=== PATIENT | male | born 1950 | race Caucasian/White ===

== ENCOUNTER 2024-05-29 04:32 | Emergency (ER) | payer MEDICARE, SELFPAY ==
[2024-05-29] VITALS (18 sets, daily range): BP systolic 144–196; BP diastolic 69–91; PULSE 59–60; RESP 18–20; TEMP 36.2; O2SAT 92–99
--- NOTE | ~2024-05-29 | CT_ITS ---
Non-contrast CT scan of the Abdomen and Pelvis Clinical indication: Abdominal pain, hematuria Technique: 2.5 mm axial scans were obtained through the abdomen and pelvis without intravenous or or al contrast. Dose reduction technique was used on this scan by utilizing automated exposure control a nd iterative reconstruction technique. The dose-length product (DLP) was 784.82 mGy-cm. Findings: Images through the lung bases reveal no abnormalities. There is a 12 x 9 mm ovoid right UVJ stone, with moderate right hydroureteronephrosis to this level. There is extensive right perinephric stranding/fluid. Small nonobstructing left renal stones measurin g up to 2-3 mm in size. No left ureteral stone or left hydronephrosis. The liver, spleen, pancreas, gallbladder, and adrenals appear normal. There are atherosclerotic calci fications of the aorta. There is no evidence of bowel obstruction. Images through the pelvis were performed. There is no evidence of pelvic ascites or lymphadenopathy. Tiny left-sided urinary bladder diverticulum noted. Prostate gland enlarged. Impression: 12 x 9 mm right UVJ stone, with moderate right hydroureteronephrosis and extensive right perinephric stranding/fluid. Small nonobstructing left renal stones, as detailed above. Tiny left-sided urinary bladder diverticulum. Reviewed, dictated and finalized at location . Impression: 12 x 9 mm right UVJ stone, with moderate right hydroureteronephrosis and extens mirian right perinephric stranding/fluid. Small nonobstructing left renal stones, as detailed above. Tiny left-sided urinary bladder diverticulum.
--- NOTE | 2024-05-29 04:39 | ED.ABDPAIN ---
HPI - Abdominal Pain General Chief Complaint: Abdominal Pain <Iker Marin MD - Last Filed: 05/29/24 07:02> Stated Complaint: Abdominal Pain <Iker Marin MD - Last Filed: 05/29/24 07:02> Time Seen by Provider: 05/29/24 04:39 <Iker Marin MD - Last Filed: 05/29/24 07:02> Source: patient <Iker Marin MD - Last Filed: 05/29/24 07:02> Mode of arrival: ambulatory <Iker Marin MD - Last Filed: 05/29/24 07:02> Limitations: no limitations <Iker Marin MD - Last Filed: 05/29/24 07:02> History of Present Illness HPI narrative: 73-year-old male with memory problems, Kidney stones presents to the ED with -- abdominal pain which started sometime at night. No fever or chills. No nausea / vomiting. No diarrhea. <Iker Marin MD - Last Filed: 05/29/24 07:02> MD elicited complaint: abdominal pain <Iker Marin MD - Last Filed: 05/29/24 07:02> Onset (ago): hour(s) ( Around 6 hours) <Iker Marin MD - Last Filed: 05/29/24 07:02> Pain Consistency: constant <Iker Marin MD - Last Filed: 05/29/24 07:02> Location: diffuse <Iker Marin MD - Last Filed: 05/29/24 07:02> Severity: mild <Iker Marin MD - Last Filed: 05/29/24 07:02> Quality: aching <Iker Marin MD - Last Filed: 05/29/24 07:02> Radiation: none <Iker Marin MD - Last Filed: 05/29/24 07:02> Migration to: no migration <Iker Marin MD - Last Filed: 05/29/24 07:02> Exacerbating factors: nothing <Iker Marin MD - Last Filed: 05/29/24 07:02> Relieving factors: nothing <Iker Marin MD - Last Filed: 05/29/24 07:02> Associated symptoms: denies other symptoms <Iker Marin MD - Last Filed: 05/29/24 07:02> Related Data Home Medications: Home Medications Medication Instructions Recorded Confirmed No Home Medications 05/29/24 05/29/24 <Iker Marin MD - Last Filed: 05/29/24 07:02> Allergies/Adverse Reactions: Allergies Allergy/AdvReac Type Severity Reaction Status Date / Time No Known Allergies Allergy Verified 05/29/24 04:40 <Iker Marin MD - Last Filed: 05/29/24 07:02> Review of Systems Review of Systems: All systems reviewed & are unremarkable except as noted in HPI and below <Iker Marin MD - Last Filed: 05/29/24 07:02> Constitutional: Constitutional: Reports as per HPI and Reports no additional constitutional complaints <Iker Marin MD - Last Filed: 05/29/24 07:02> Eyes: Eyes: Reports as per HPI and Reports no additional eye complaints <Iker Marin MD - Last Filed: 05/29/24 07:02> ENT: Reports system reviewed and no additional complaints, except as documented and Reports as per HPI <Iker Marin MD - Last Filed: 05/29/24 07:02> Cardiovascular: Cardiovascular: Reports as per HPI and Reports no additional cardiovascular complaints <Iker Marin MD - Last Filed: 05/29/24 07:02> Respiratory: Respiratory: Reports as per HPI and Reports no additional respiratory complaints <Iker Marin MD - Last Filed: 05/29/24 07:02> Gastrointestinal: Gastrointestinal: Reports abdominal pain and Reports nausea <Iker Marin MD - Last Filed: 05/29/24 07:02> Genitourinary: Comments: difficulty urination. The patient is unable to elaborate his complaints. <Iker Marin MD - Last Filed: 05/29/24 07:02> Musculoskeletal: Musculoskeletal: Reports no additional musculoskeletal complaints and Reports as per HPI <Iker Marin MD - Last Filed: 05/29/24 07:02> Integumentary/Breasts: Skin/Breast: Reports system reviewed and no additional complaints, except as docu and Reports as per HPI <Iker Marin MD - Last Filed: 05/29/24 07:02> Neurologic: Reports system reviewed and no additional complaints, except as documented and Reports as per HPI <Iker Pederson
--- NOTE | 2024-05-29 04:54 | ECG_ITS ---
Test Date: 2024-05-29 05:14:28 Measurements Intervals [place] Rate: 60 P: 38 SC: 208 QRS: -26 QRSD: 110 T: -3 QT: 417 QTc: 420 Interpretive Statements SINUS RHYTHM WITH FIRST DEGREE AV BLOCK BORDERLINE R WAVE PROGRESSION, ANTERIOR LEADS LEFT VENTRICULAR HYPERTROPHY BORDERLINE T WAVE ABNORMALITY- INFERIOR LEADS BASELINE ARTIFACT- I, II, III BORDERLINE ECG No previous ECG available for comparison Electronically Signed On 05-29-2024 08:51:13 CDT by Charly Viera D.O.
[2024-05-29] MEDS: PROCHLORPERAZINE EDISYLATE 10 MG/2 ML VIAL IV PUSH (05:13)
[2024-05-29 05:17] LABS: Basophils Absolute Auto 0.07 K/mm3 (0.00-0.10); Basophils Percent Auto 0.8 % (0.0-1.0); Eosinophils Absolute Auto 0.06 K/mm3 (0.02-0.50); Eosinophils Percent Auto 0.7 % (1.0-6.0); Hematocrit 43.8 % (37.0-46.0); Hemoglobin 15.1 g/dL (12.4-15.3); Immature Granulocyte Absolute 0.02 K/mm3 (0.00-0.00); Immature Granulocyte Percent A 0.2 % (0.0-0.0); Lymphocytes Absolute Auto 1.13 K/mm3 (1.10-4.50); Lymphocytes Percent Auto 12.6 % (18.0-42.0); Mean Corpuscular HGB Conc 34.5 g/dL (32-36); Mean Corpuscular Hemoglobin 29.7 pg (27.0-31.0); Mean Corpuscular Volume 86.2 fL (78.0-102.0); Mean Platelet Volume 9.2 fl (8.7-11.0); Monocytes Absolute Auto 0.75 K/mm3 (0.10-0.90); Monocytes Percent Auto 8.3 % (2.0-11.0); Neutrophils Absolute Auto 6.97 K/mm3 (1.70-7.20); Neutrophils Percent Auto 77.4 % (50.0-70.0); Platelet Count Result 229 K/mm3 (150-420); Red Blood Count 5.08 M/mm3 (4.70-6.10); Red Cell Distribution Width 13.1 % (11.6-14.4)
[2024-05-29 05:28] LABS: Prothrombin Time 11.2 Seconds (9.50-12.1)
[2024-05-29 05:39] LABS: Appearance Urine Clear (Clear); Color Urine Yellow (Yellow); pH Urine 7.5 (5.0-8.0)
[2024-05-29 05:40] LABS: Add Urine Microscopic? YES; Bilirubin Urine Negative (Negative); Blood Urine 2+ (Negative); Glucose Urine UA Negative (Negative); Ketones Urine Negative (Negative); Leukocyte Esterase Ur Negative LEU/UL (Negative); Nitrate Urine Negative (Negative); Protein Urine Trace (Negative); Urobilinogen Urine 0.2 mg/dL (0.2-1.0)
[2024-05-29 06:12] LABS: Lactic Acid Reflex 1.5 mmol/L (0.7-2.0)
[2024-05-29 06:13] LABS: Alanine Aminotransferase 14 U/L (6-50); Albumin Level 4.2 g/dL (3.5-5.1); Alkaline Phosphatase 70 U/L (38-126); Anion Gap 9 mmol/L (4-12); Aspartate Amino Transferase 29 U/L (17-59); Bilirubin,Total 0.7 mg/dL (0.2-1.3); Blood Urea Nitrogen 16 mg/dL (9-20); Calcium 8.9 mg/dL (8.4-10.2); Carbon Dioxide 30 mmol/L (22-30); Chloride 99 mmol/L (98-107); Estimated CRCL calculation 43 ml/min; Estimated Glomerular Filt Rate 49; Glucose 131 mg/dL (65-110); Lipase 102 U/L (23-300); Osmolality Calculated 289 mOsm/kg (285-295); Potassium 3.6 mmol/L (3.4-5.0); Sodium 138 mmol/L (137-145)
[2024-05-29 06:22] LABS: Amphetamine Screen Urine Negative (Negative); Barbiturate Screen Urine Negative (Negative); Benzodiazepines Screen Urine Negative (Negative); Cannabinoid Screen Urine Negative (Negative); Cocaine Screen Urine Negative (Negative); Methadone Screen Urine Negative (Negative); Opiate Screen Urine Negative (Negative); Phencyclidine Screen Urine Negative (Negative)
[2024-05-29 06:24] LABS: Influenza A QL RT-PCR Negative (Negative); Influenza B QL RT-PCR Negative (Negative); RSV RNA, RT-PCR Negative (Negative); SARS-CoV-2 RNA PCR Negative (Negative)
[2024-05-29 06:31] LABS: NT Pro B Type Natriuretic Pept 661 pg/mL (19.9-100)
--- NOTE | 2024-05-29 06:43 | PC.NURSE ---
[facility] lab dept notified to verify critical trop that was resulted in the pts. lab values. Spoke w/ lab dept. and they are checking into the result value. It was noted as High at 4.000, no call back for this trop was received, therefore, call placed to lab at [facility] to verify the result.
--- NOTE | 2024-05-29 06:48 | PC.NURSE ---
Lab value is being corrected per [facility] dept.
[2024-05-29 06:57] LABS: Troponin I < 0.034 ng/mL (0.000-0.034)
--- NOTE | 2024-05-29 07:42 | PC.NURSE ---
07 report from jb carpenter. resumed care of patient at this time. 07 introduced self to pt and son, informed of need to see urologist, voiced understanding 0714 call to bijal, awaiting call back
[2024-05-29] MEDS: PIPERACILLN/TAZ 3.375GM/NS50ML 3.375 GM/50 ML BAG IVPB (07:59)
--- NOTE | 2024-06-04 12:38 | PC.NURSE ---
Final blood culture report faxed to [facility] [phone]
== END 2024-05-29 09:25 | disposition short-term general hospital (02) ==
PROVIDERS: Emergency Provider Internal Medicine Critical Care Medicine
DX: N20.1 Calculus of ureter (principal); N10 Acute pyelonephritis; Z20.822 Contact with and (suspected) exposure to COVID-19
CPT/HCPCS: 36415; 74176; 80053; 80307; 81001; 83605; 83690; 83880; 84443; 84484; 85025; 85610; 87040; 87147; 87181; 87637; 93005; 96365; 96375; 99285; J0780; J2543

== ENCOUNTER 2024-05-29 10:04 | Inpatient (IN) | payer MEDICARE, MEDICAID, SELFPAY ==
--- NOTE | ~2024-05-29 | XR_ITS ---
EXAMINATION: XR retrograde pyelo w/stent RT DATE: 05/31/2024 12:47 INDICATION: Right ureteral stone. TECHNIQUE: 4 intraoperative fluoroscopic views of the abdomen and pelvis were obtained. I was not pre sent. Fluoroscopy exposure time was 26 seconds. COMPARISON: CT abdomen pelvis 05/29/2024 FINDINGS: There is a stone at right ureterovesicular junction. The right-sided retrograde pyelograms demonstrate hydronephrosis and hydroureter. The final images demonstrate a right internal ureteral st ent in expected position. IMPRESSION: 1. Stone at right ureterovesicular junction. 2. Right-sided hydronephrosis and hydroureter. 3. Right internal ureteral stent in expected position. Reviewed, dictated and finalized at location A.
--- NOTE | 2024-05-29 10:24 | ADMGEN ---
This patient, Keesha Kruger, was admitted to [facility] Surg Room 324-02. Patient/family oriented to hospital policies and general routines including ID bracelet, bed and alarms, visiting hours, pain management, procedures, bathroom and other care routines, personal items, smoking policy, room service/diet, and visiting hours. Information on how to activate the Rapid Response Team has been discussed. Patient/Family are encouraged to report perceived risks to care and to ask questions if they do not understand what they are told or what they should do.
[2024-05-29 10:46] VITALS: BP 178/85; PULSE 59; RESP 20; TEMP 36.1; O2SAT 97
--- NOTE | 2024-05-29 13:11 | PM.IMHP ---
H&P: HPI History of Present Illness Date/Time: 05/29/24 13:11 Chief Complaint: abdominal pain Narrative: this 73-year-old male who presents with abdominal/flank pain since yesterday. No urinary symptoms. Associated nausea and no vomiting. He reports pain on the suprapubic area as well. Was not feeling well overall. [facility] which showed 12 x 9 mm right UVJ stone with right hydronephrosis with perinephric stranding. This was discussed with Urology and was transferred here for further treatment. since then His abdominal pain has resolved. Review of Systems Review of Systems: - CONSTITUTIONAL: Denies weight loss, fever and chills. - HEENT: Denies changes in vision and hearing - RESPIRATORY: Denies SOB and cough. - CV: Denies palpitations and CP. - GI: Reports abdominal pain, nausea, novomiting and diarrhea. - : Denies dysuria and urinary frequency. - MSK: Denies myalgia and joint pain. - SKIN: Denies rash and pruritus. - NEUROLOGICAL: Denies headache and syncope. - PSYCHIATRIC: Denies recent changes in mood. Denies anxiety and depression. PMFSH Past Medical History Medical History (Updated 05/29/24 @ 07:10 by Shukri Laws MD) Kidney stones Social History Social History (Updated 05/29/24 @ 04:47 by Iker Marin MD) Social History: Nonsmoker. Nonalcoholic. Smoking status: Never smoker Alcohol intake: never Substance use: never Do You Feel Safe in your Home?: Yes Lack of Transportation: No Lack of Food: Never True Current Housing: I Have Housing Concerned About Future Housing: No Difficulty Paying Gas/Electric Bills: No Difficulty Paying for Meds: No Currently Unemployed: No Education: Don't Know Difficulty w/ Childcare or Family Care: No Spiritual care concerns: No Meds Home Medications and Allergies Home Medications Medication Instructions Recorded Confirmed Type No Home Medications 05/29/24 05/29/24 History Allergies Allergy/AdvReac Type Severity Reaction Status Date / Time No Known Allergies Allergy Verified 05/29/24 10:25 Vital Signs Vital Signs - 24 hr 05/29/24 10:46 Temperature 97.0 F L Pulse Rate 59 L Respiratory Rate 20 Blood Pressure 178/85 H Pulse Oximetry 97 Exam Narrative: GENERAL: The patient is well developed, not in acute distress HEENT: Nonicteric sclerae, PERRLA, EOMI. Oropharynx clear. Moist mucous membranes. Conjunctivae appear well perfused. CHEST: Chest wall is nontender. HEART: Regular rate and rhythm without murmur, rubs, or gallops LUNGS: Clear to auscultation bilaterally. no respiratory distress ABDOMEN: Soft, positive bowel sounds, non-tender, no organomegaly. SKIN: No rash, no excessive bruising, petechiae, or purpura. NEUROLOGIC: Cranial nerves II-XII intact, alert and oriented x 3, no gross motor deficits EXTREMITIES: no edema, cyanosis or clubbing Assessment and Plan Assessment and plan (1) Calculus, ureteral: Code(s): N20.1 - Calculus of ureter Status: Acute (2) Acute pyelonephritis: Code(s): N10 - Acute pyelonephritis Status: Acute Plan this 73-year-old male who presents with abdominal/flank pain since yesterday. No urinary symptoms. Associated nausea and no vomiting. He reports pain on the suprapubic area as well. Was not feeling well overall. Went to the ER. An [facility] CT abdomen was done which showed 12 x 9 mm right UVJ stone with right hydronephrosis with perinephric stranding. This was discussed with Urology and was transferred here for further treatment. since then His abdominal pain has resolved. Vital status was stable except for hypertension in the ER. Laboratory evaluation showed WBC of 9 hemoglobin of 15 creatinine 1.4 lactulose normal at 1.5 troponin was negative less than 0.034 lipase normal at 102. TSH was normal urinalysis was negative for infection except for 1
[2024-05-29 13:15] VITALS: BP 170/80
[2024-05-29] MEDS: hydrALAZINE HCL 20 MG/ML VIAL 10 MG IV PUSH (13:49)
[2024-05-29] MEDS: SODIUM CHLORIDE 0.9% IV 1,000 ML 75 ML IV CONT (13:51)
[2024-05-29 14:00] VITALS: BP 145/53; PULSE 57; RESP 19; TEMP 36.7; O2SAT 100
[2024-05-29 15:00] VITALS: BP 151/65
[2024-05-29] MEDS: amLODIPine BESYLATE 5 MG TABLET PO (18:41)
[2024-05-29 20:00] VITALS: PULSE 99; RESP 18; O2SAT 98
[2024-05-29] MEDS: MORPHINE SULFATE (*CRX) 2 MG/ML INJ IV PUSH (21:07)
[2024-05-29 21:22] VITALS: BP 170/75; PULSE 99; RESP 18; TEMP 36.7; O2SAT 98
[2024-05-30] MEDS: MORPHINE SULFATE (*CRX) 2 MG/ML INJ IV PUSH ×2 (00:51→06:14)
[2024-05-30 05:10] VITALS: BP 114/54; PULSE 75; RESP 16; TEMP 36.7; O2SAT 96
[2024-05-30 06:00] VITALS: BP 173/82; PULSE 64; RESP 20; TEMP 36.3; O2SAT 95
[2024-05-30] MEDS: hydrALAZINE HCL 20 MG/ML VIAL 10 MG IV PUSH ×2 (06:13→20:47)
[2024-05-30] MEDS: SODIUM CHLORIDE 0.9% IV 1,000 ML 75 ML IV CONT (06:14)
[2024-05-30 06:34] VITALS: BP 134/78
[2024-05-30 08:50] LABS: Basophils Absolute Auto 0.1 K/mm3 (0.0-0.1); Basophils Percent Auto 0.9 % (0.2-1.2); Eosinophils Absolute Auto 0.1 K/mm3 (0-0.3); Eosinophils Percent Auto 1.4 % (0-4.4); Hematocrit 45.9 % (42.0-52.0); Hemoglobin 15.5 g/dL (14.0-18.0); Immature Granulocyte Absolute 0.02 K/mm3 (0.00-0.031); Immature Granulocyte Percent A 0.3 % (0-0.5); Lymphocytes Absolute Auto 2.16 K/mm3 (0.9-3.2); Lymphocytes Percent Auto 31.3 % (18.3-44.2); Mean Corpuscular HGB Conc 33.8 g/dl (32-36); Mean Corpuscular Hemoglobin 29.9 pg (26-34); Mean Corpuscular Volume 88.4 fl (80-100); Mean Platelet Volume 9.9 fl (7.4-10.4); Monocytes Absolute Auto 0.7 K/mm3 (0.1-0.6); Monocytes Percent Auto 10.4 % (2.6-8.5); Neutrophils Absolute Auto 3.9 K/mm3 (1.3-6.7); Neutrophils Percent Auto 55.7 % (45.5-73.1); Platelet Count Result 220 k/mm3 (150-375); Red Blood Count 5.19 M/mm3 (4.6-6.20); Red Cell Distribution Width 13.7 % (11.5-14.5); White Blood Count 6.9 K/mm3 (4.5-10.0)
[2024-05-30 09:11] LABS: Alanine Aminotransferase 13 U/L (6-50); Alkaline Phosphatase 62 U/L (38-126); Anion Gap 9 mmol/L (4-12); Aspartate Amino Transferase 26 U/L (17-59); Bilirubin,Total 1.3 mg/dL (0.2-1.3); Blood Urea Nitrogen 13 mg/dL (9-20); Calcium 8.5 mg/dL (8.4-10.2); Carbon Dioxide 29 mmol/L (22-30); Chloride 103 mmol/L (98-107); Estimated Glomerular Filt Rate 59; Glucose 89 mg/dL (65-110); Potassium 3.5 mmol/L (3.4-5.0); Sodium 141 mmol/L (137-145)
--- NOTE | 2024-05-30 09:21 | WPDURCON ---
Assessment and Plan Assessment and plan (1) Right ureteral stone: Code(s): N20.1 - Calculus of ureter Status: Acute Assessment and Plan: Patient with distal right ureteral stone. Will plan for cystoscopy with right ureteroscopy, possible laser lithotripsy, possible stone extraction, and right ureteral stent placement tomorrow. NPO at midnight Urology Consult Note HPI Date Seen: 05/30/24 Requesting Physician: Seamus Lance MD Primary Care Provider: [facility] Consult Narrative Narrative: Keesha Kruger is a 73 year old male with history of prior kidney stones, most recently requiring stone extraction 8 years prior who was transferred to this facility for evaluation of right distal ureteral stone. The patient presented to an outside ER on 05/29/2024 with complaints of diffuse abdominal pain and nausea. On arrival, CT of the abdomen/pelvis was completed which showed a 9 mm distal right ureteral stone with moderate right hydroureteronephrosis extensive perinephric stranding. He was transferred to this facility for urologic evaluation. His white blood cell count is within normal limits. Creatinine is stable at 1.2. UA with 2+ blood, otherwise unremarkable. Urine and blood cultures are pending at this time. He has remained afebrile and his vital signs are stable. At the time of my evaluation, he reports improvement of his diffuse abdominal pain. He denies nausea, vomiting, fever, or chills. Denies dysuria or hematuria. He is a fair historian at best and appears slightly forgetful. Review of Systems Review of Systems: All systems reviewed & are unremarkable except as noted in HPI and below PMFSH Past Medical History Medical History (Updated 05/30/24 @ 09:25 by Zahida Rodarte PA-C) Kidney stones Social History Social History (Updated 05/29/24 @ 04:47 by Iker Marin MD) Social History: Nonsmoker. Nonalcoholic. Smoking status: Never smoker Alcohol intake: never Substance use: never Do You Feel Safe in your Home?: Yes Lack of Transportation: No Lack of Food: Never True Current Housing: I Have Housing Concerned About Future Housing: No Difficulty Paying Gas/Electric Bills: No Difficulty Paying for Meds: No Currently Unemployed: No Education: Don't Know Difficulty w/ Childcare or Family Care: No Spiritual care concerns: No Meds Home Medications and Allergies Home Medications Medication Instructions Recorded Confirmed Type No Home Medications 05/29/24 05/29/24 History Allergies Allergy/AdvReac Type Severity Reaction Status Date / Time No Known Allergies Allergy Verified 05/29/24 10:25 Vital Signs Vital Signs - 24 hr 05/29/24 10:46 05/29/24 13:15 05/29/24 14:00 Temperature 97.0 F L 98.0 F Pulse Rate 59 L 57 L Respiratory Rate 20 19 Blood Pressure 178/85 H 170/80 H 145/53 H Pulse Oximetry 97 100 Oxygen Delivery 05/29/24 10:24 05/29/24 15:00 05/29/24 21:22 Temperature 98.1 F Pulse Rate 99 Respiratory Rate 18 Blood Pressure 151/65 H 170/75 H Pulse Oximetry 98 Oxygen Delivery Room Air 05/29/24 20:00 05/30/24 05:10 05/30/24 06:00 Temperature 98.1 F 97.3 F L Pulse Rate 99 75 64 Respiratory Rate 18 16 20 Blood Pressure 114/54 L 173/82 H Pulse Oximetry 98 96 95 Oxygen Delivery Room Air 05/30/24 06:34 Temperature Pulse Rate Respiratory Rate Blood Pressure 134/78 Pulse Oximetry Oxygen Delivery Exam Narrative: General: Awake, alert, comfortable, no acute distress HEENT: Normocephalic, atraumatic, sclerae anicteric Respiratory: Normal respiratory effort, no accessory muscle use Abdomen: Nondistended, soft, nontender Skin: Normal coloration, warm and dry Neurologic: No focal neuro deficits noted, slightly forgetful Psychiatric: Appropriate mood and affect, judgment and insight fair Results Labs 05/30/24 08:16 05/30/24 08:16
[2024-05-30] MEDS: amLODIPine BESYLATE 5 MG TABLET PO (09:31)
--- NOTE | 2024-05-30 12:42 | PM.IMPN ---
Progress Note: A&P Assessment and Plan (1) Calculus, ureteral: Code(s): N20.1 - Calculus of ureter Status: Inactive (2) Acute pyelonephritis: Code(s): N10 - Acute pyelonephritis Status: Inactive Plan this 73-year-old male who presents with abdominal/flank pain since yesterday. No urinary symptoms. Associated nausea and no vomiting. He reports pain on the suprapubic area as well. Was not feeling well overall. [facility] which showed 12 x 9 mm right UVJ stone with right hydronephrosis with perinephric stranding. This was discussed with Urology and was transferred here for further treatment. since then His abdominal pain has resolved. Vital status was stable except for hypertension in the ER. Laboratory evaluation showed WBC of 9 hemoglobin of 15 creatinine 1.4 lactulose normal at 1.5 troponin was negative less than 0.034 lipase normal at 102. TSH was normal urinalysis was negative for infection except for 11-20 RBC. Urine drug screen was negative. Viral swab for influenza RSV and COVID was negative. CT abdomen pelvis: 12 x 9 mm right UVJ stone with moderate right hydroureteronephrosis and extensive right perinephric stranding/ fluid. Small nonobstructing nonobstructing left renal stones. Will continue on IV antibiotics. Urology consulted and plan for cystoscopy lithotripsy stone extraction stent placement tomorrow. Hypertension added on amlodipine daily DVT prophylaxis SCDs Code status full code Subjective Date/time seen: 05/30/24 12:42 Interval history: No new complaints. Reports some back pain which is in the middle different from when he came in. Review of Systems Review of Systems: All systems reviewed & are unremarkable except as noted in HPI and below Exam Narrative: GENERAL: The patient is well developed, not in acute distress HEENT: Nonicteric sclerae, PERRLA, EOMI. Oropharynx clear. Moist mucous membranes. Conjunctivae appear well perfused. CHEST: Chest wall is nontender. HEART: Regular rate and rhythm without murmur, rubs, or gallops LUNGS: Clear to auscultation bilaterally. no respiratory distress ABDOMEN: Soft, positive bowel sounds, non-tender, no organomegaly. SKIN: No rash, no excessive bruising, petechiae, or purpura. NEUROLOGIC: Cranial nerves II-XII intact, alert and oriented x 3, no gross motor deficits EXTREMITIES: no edema, cyanosis or clubbing Objective Data Vital Signs Vital Signs: Vital Signs - 24 hr 05/29/24 13:15 05/29/24 14:00 05/29/24 15:00 Temperature 98.0 F Pulse Rate 57 L Respiratory Rate 19 Blood Pressure 170/80 H 145/53 H 151/65 H Pulse Oximetry 100 Oxygen Delivery 05/29/24 21:22 05/29/24 20:00 05/30/24 05:10 Temperature 98.1 F 98.1 F Pulse Rate 99 99 75 Respiratory Rate 18 18 16 Blood Pressure 170/75 H 114/54 L Pulse Oximetry 98 98 96 Oxygen Delivery Room Air 05/30/24 06:00 05/30/24 06:34 05/30/24 09:40 Temperature 97.3 F L Pulse Rate 64 Respiratory Rate 20 Blood Pressure 173/82 H 134/78 Pulse Oximetry 95 Oxygen Delivery Room Air Intake/Output Intake/Output: Intake & Output 05/27/24 05/28/24 05/29/24 05/30/24 23:59 23:59 23:59 23:59 Intake Total 1440 Output Total 600 1050 Balance -600 390 Meds/Results Medications: Active Medications Generic Name Dose Route Start Last Admin Trade Name Freq PRN Reason Stop Dose Admin Acetaminophen 650 mg 05/29/24 13:15 Acetaminophen 325 Mg Tablet PO Q4H PRN Mild Pain (1-3) or Fever Amlodipine Besylate 5 mg 05/29/24 16:50 05/30/24 09:31 Amlodipine Besylate 5 Mg Tablet PO 5 mg DAILY HAJA Administration Enoxaparin Sodium 40 mg 05/30/24 09:00 Enoxaparin 40 Mg/0.4 Ml Syringe SUB-Q DAILY HAJA Hydralazine HCl 10 mg 05/29/24 13:15 05/30/24 06:13 Hydralazine Hcl 20 Mg/Ml Vial IV PUSH 10 mg Q8H PRN Administration Blood Pressure - High Sodium Chloride
[2024-05-30] MEDS: cefTRIAXone 2 GM/NS 100 ML 2 GM/100 ML BAG IVPB (13:18)
[2024-05-30 14:00] VITALS: BP 146/74; PULSE 72; RESP 18; TEMP 36.4; O2SAT 95
[2024-05-30 20:05] VITALS: BP 210/84; PULSE 80; RESP 20; TEMP 37.2; O2SAT 99
[2024-05-31] VITALS (12 sets, daily range): BP systolic 144–176; BP diastolic 66–103; PULSE 61–98; RESP 14–22; TEMP 36.7–37.3; O2SAT 95–100; BMI 31.5
[2024-05-31] MEDS: amLODIPine BESYLATE 5 MG TABLET PO (08:13)
--- NOTE | 2024-05-31 10:06 | WPDHPUPDATE1 ---
History and Physical Update Update Date/Time: 05/31/24 10:06 History and Physical has been reviewed, including an updated exam of the patient. There are NO changes in the patient's condition. Risks, benefits, and alternatives have been discussed and questions answered. Patient agrees to proceed with procedure. cystoscopy, right retrograde, right ureteroscopy with stone extraction, possible laser, stent placement.
--- NOTE | 2024-05-31 11:36 | P.PNAN_ITS ---
Anes - Initial Pre Proc Eval Procedure: Operation Date: 05/31/24 12:15 Proposed Procedures p Cystoscopy, Right Ureteroscopy, Possible Right Retrograde Pyelogram, Possible Right Stone Extraction, Possible Right Stent Placement, Possible Holmium Laser Procedure - Amado Singh MD Date/Time: 05/31/24 11:36 Surgeon: Seamus Lance MD Pre Op Diagnosis: direct admit Patient Data Age: 73 Gender: M Height: 1.68 m Weight: 87.7 kg Last Vital Signs Temp 37.1 C 05/31/24 11:00 Pulse 98 05/31/24 11:00 Resp 14 05/31/24 11:00 BP 170/69 H 05/31/24 11:00 Pulse Ox 95 05/31/24 11:00 O2 Del Method Room Air 05/31/24 11:00 Allergies Allergy/AdvReac Type Severity Reaction Status Date / Time No Known Allergies Allergy Verified 05/31/24 11:16 Home Medications Medication Instructions Recorded Confirmed Type No Home Medications 05/29/24 05/29/24 History Patient hx anesthesia problems: none Family hx anesthesia problems: none Results Review: All pre-operative results and documents have been reviewed as part of the pre- operative evaluation. [facility] Past Medical History Medical History Kidney stones Social History Social History Social History: Nonsmoker. Nonalcoholic. Smoking status: Never smoker Alcohol intake: never Substance use: never Do You Feel Safe in your Home?: Yes Lack of Transportation: No Lack of Food: Never True Current Housing: I Have Housing Concerned About Future Housing: No Difficulty Paying Gas/Electric Bills: No Difficulty Paying for Meds: No Currently Unemployed: No Education: Don't Know Difficulty w/ Childcare or Family Care: No Spiritual care concerns: No Anes - Eval Final PreProcedure Day of Procedure 05/31/24 11:36 Patient weight: obese Heart: regular rate and rhythm Lungs: decreased breath sounds Airway: Mallampati scale class III Neurological: alert and oriented Last oral intake: >/= 8 hours ASA classification: III Emergent: no Anesthetic plan: proceed Anesthesia type and monitoring: general LMA and standard monitoring Results Review: All pre-operative results and documents have been reviewed as part of the pre- operative evaluation. Informed Consent: The patient's anesthetic plan and its attendant risks and benefits were discussed with the patient/family/POA. Questions were solicited and answers provided to the satisfaction of the patient/family/POA.
[2024-05-31] MEDS: cefTRIAXone 2 GM/NS 100 ML 2 GM/100 ML BAG IVPB (11:57)
[2024-05-31] MEDS: LIDOCAINE HCL 2% GEL UROJET 10 ML PKG MUCOUS MEM (12:24)
--- NOTE | 2024-05-31 12:43 | P.OP_ITS ---
Procedure Note - Detailed Date of Procedure 05/31/24 Pre-op Diagnosis 12 mm right ureteral calculus Post-op Diagnosis Same Procedure Performed Cystoscopy, right retrograde, right ureteroscopy with holmium laser, stone extraction, right ureteral stent placement 4.8 Guyanese contour Surgeon Amado Singh MD Anesthesia General Description of Procedure Patient was taken to the operative suite correctly identified. Once anesthesia was obtained he was placed in dorsal lithotomy position and prepped and draped usual sterile fashion. Twenty-two Guyanese scope inserted the bladder. There is no tumors noted. Right ureteral orifice was cannulated with a guidewire. I dilated with an 8/10 dilator. Rigid ureteral scope was then inserted. The stone was visualized but too large to grasp in 1 piece. Using a 200 micron fiber the stone was fragmented and dusted. Larger pieces were sent for analysis. He does have some very small tiny fragments in the ureter but these are unable to be grasped. At this point we terminated procedure by doing a pyelogram to confirm placement the stent. 4.8 Guyanese contour stent was then placed in the proximal end coiled in the renal pelvis and the distal in the bladder. Bladder was drained. 2% viscous lidocaine was inserted into the urethra. Patient is taken recovery stable condition. Will plan on removing the stent in a week's time. This completes this dictation. Please send a copy of op note to my office. Estimated Blood Loss 0 Urine Output 275 Drains Yes Packing No Pathology Yes Complications No immediate complications Condition Stable Disposition PACU
[2024-05-31] MEDS: LACTATED RINGERS 1,000 ML 30 ML IV CONT ×2 (12:47)
--- NOTE | 2024-05-31 13:20 | SUR.PHASEI ---
Per Jim samson, patient confused at baseline.
--- NOTE | 2024-05-31 13:22 | PM.IMPN ---
Progress Note: A&P Assessment and Plan (1) Calculus, ureteral: Code(s): N20.1 - Calculus of ureter Status: Inactive (2) Acute pyelonephritis: Code(s): N10 - Acute pyelonephritis Status: Inactive Plan this 73-year-old male who presents with abdominal/flank pain since yesterday. No urinary symptoms. Associated nausea and no vomiting. He reports pain on the suprapubic area as well. Was not feeling well overall. [facility] which showed 12 x 9 mm right UVJ stone with right hydronephrosis with perinephric stranding. This was discussed with Urology and was transferred here for further treatment. since then His abdominal pain has resolved. Vital status was stable except for hypertension in the ER. Laboratory evaluation showed WBC of 9 hemoglobin of 15 creatinine 1.4 lactulose normal at 1.5 troponin was negative less than 0.034 lipase normal at 102. TSH was normal urinalysis was negative for infection except for 11-20 RBC. Urine drug screen was negative. Viral swab for influenza RSV and COVID was negative. CT abdomen pelvis: 12 x 9 mm right UVJ stone with moderate right hydroureteronephrosis and extensive right perinephric stranding/ fluid. Small nonobstructing nonobstructing left renal stones. Will continue on IV antibiotics. Urology consulted and status post cystoscopy lithotripsy stone extraction stent placement 05/31/2024 Bacteremia with Gram-positive cocci in clusters. Start vancomycin IV. Hypertension added on amlodipine daily DVT prophylaxis SCDs Code status full code Subjective Date/time seen: 05/31/24 13:22 Interval history: Patient went for cystoscopy lithotripsy and stent placement today. Feels great. Remains afebrile. Review of Systems Review of Systems: All systems reviewed & are unremarkable except as noted in HPI and below Exam Narrative: GENERAL: The patient is well developed, not in acute distress HEENT: Nonicteric sclerae, PERRLA, EOMI. Oropharynx clear. Moist mucous membranes. Conjunctivae appear well perfused. CHEST: Chest wall is nontender. HEART: Regular rate and rhythm without murmur, rubs, or gallops LUNGS: Clear to auscultation bilaterally. no respiratory distress ABDOMEN: Soft, positive bowel sounds, non-tender, no organomegaly. SKIN: No rash, no excessive bruising, petechiae, or purpura. NEUROLOGIC: Cranial nerves II-XII intact, alert and oriented x 3, no gross motor deficits EXTREMITIES: no edema, cyanosis or clubbing Objective Data Vital Signs Vital Signs: Vital Signs - 24 hr 05/30/24 14:00 05/30/24 20:05 05/30/24 20:00 Temperature 97.6 F 98.9 F Pulse Rate 72 80 Respiratory Rate 18 20 Blood Pressure 146/74 H 210/84 H Pulse Oximetry 95 99 Oxygen Delivery Room Air Oxygen Flow Rate 05/31/24 03:10 05/31/24 04:05 05/31/24 11:00 Temperature 99.2 F 98.7 F Pulse Rate 66 98 Respiratory Rate 22 H 14 Blood Pressure 144/70 H 150/66 H 170/69 H Pulse Oximetry 98 95 Oxygen Delivery Room Air Oxygen Flow Rate 05/31/24 12:47 05/31/24 13:00 Temperature 98.1 F Pulse Rate 61 66 Respiratory Rate 17 18 Blood Pressure 156/103 H 176/92 H Pulse Oximetry 100 97 Oxygen Delivery Simple Face Mask Room Air Oxygen Flow Rate 10 Intake/Output Intake/Output: Intake & Output 05/28/24 05/29/24 05/30/24 05/31/24 23:59 23:59 23:59 23:59 Intake Total 1900 300 Output Total 600 1915 550 Balance -600 -15 -250 Meds/Results Medications: Active Medications Generic Name Dose Route Start Last Admin Trade Name Freq PRN Reason Stop Dose Admin Acetaminophen 650 mg 05/29/24 13:15 Acetaminophen 325 Mg Tablet PO Q4H PRN Mild Pain (1-3) or Fever Amlodipine Besylate 5 mg 05/29/24 16:50 05/31/24 08:13 Amlodipine Besylate 5 Mg Tablet PO 5 mg DAILY HAJA Administration Enoxaparin Sodium 40 mg 05/30/24 09:00 05/30/24 17:32 Enoxaparin 40 Mg/0.4 Ml Syringe SUB-Q Not Given
[2024-05-31] MEDS: VANCOMYCIN 1,250 MG/NS 250 ML 1,250 MG/250 ML BAG 166.67 MG IVPB (14:19)
[2024-05-31] MEDS: VANCOMYCIN 1,000 MG/NS 250 ML 1,000 MG/250 ML BAG 250 MG IVPB (16:00)
[2024-06-01 05:38] VITALS: BP 157/75; PULSE 71; RESP 18; TEMP 36.5; O2SAT 100
[2024-06-01 06:51] LABS: Estimated CRCL calculation 37 ml/min; Estimated Glomerular Filt Rate 42
[2024-06-01] MEDS: amLODIPine BESYLATE 5 MG TABLET PO (08:29)
[2024-06-01] MEDS: ENOXAPARIN 40 MG/0.4 ML SYRINGE SUB-Q (08:29)
--- NOTE | 2024-06-01 09:59 | WPDUROPN2 ---
Progress Note: A&P Assessment and Plan (1) Right ureteral stone: Code(s): N20.1 - Calculus of ureter Status: Acute Assessment and Plan: S/p cystoscopy, right ureteroscopy with holmium laser lithotripsy, stone extraction, and right ureteral stent placement on 05/31/2024. Patient tolerated procedure well. He will follow-up as an outpatient in 1 week for stent removal. (2) Positive blood culture: Code(s): R78.81 - Bacteremia Status: Acute Assessment and Plan: 1 of 2 blood cultures with growth of Gram-positive cocci in clusters. Currently on vancomycin while awaiting final culture data. Urine culture is negative. Subjective Subjective Date/Time Seen: 06/01/24 09:59 Interval history: Keesha is doing well today. Tolerated procedure yesterday without difficulty. Noted some postoperative hematuria but states this is greatly improved and urine is clear at this time. Endorses some mild stent discomfort but overall tolerating well. Denies nausea, vomiting, fever, chills. Tolerating diet. Review of Systems Review of Systems: All systems reviewed & are unremarkable except as noted in HPI and below Exam Narrative: General: Awake, alert, comfortable, no acute distress HEENT: Normocephalic, atraumatic, sclerae anicteric Respiratory: Normal respiratory effort, no accessory muscle use Abdomen: Nondistended, soft, nontender Skin: Normal coloration, warm and dry Neurologic: No focal neuro deficits noted Psychiatric: Appropriate mood and affect, judgment and insight intact Objective Data Vital Signs Vital Signs: Vital Signs - 24 hr 05/31/24 11:00 05/31/24 12:47 05/31/24 13:00 Temperature 98.7 F 98.1 F Pulse Rate 98 61 66 Respiratory Rate 14 17 18 Blood Pressure 170/69 H 156/103 H 176/92 H Pulse Oximetry 95 100 97 Oxygen Delivery Room Air Simple Face Mask Room Air Oxygen Flow Rate 10 05/31/24 13:15 05/31/24 13:30 05/31/24 13:43 Temperature 98.1 F 98.3 F Pulse Rate 65 61 62 Respiratory Rate 20 22 H 20 Blood Pressure 168/91 H 164/79 H 162/80 H Pulse Oximetry 98 98 97 Oxygen Delivery Room Air Room Air Room Air Oxygen Flow Rate 05/31/24 14:05 05/31/24 14:20 05/31/24 14:45 Temperature Pulse Rate 71 67 81 Respiratory Rate 16 16 16 Blood Pressure 167/85 H 163/82 H 157/84 H Pulse Oximetry 100 100 100 Oxygen Delivery Oxygen Flow Rate 05/31/24 21:25 05/31/24 20:00 06/01/24 05:38 Temperature 98.0 F 97.7 F Pulse Rate 91 71 Respiratory Rate 14 18 Blood Pressure 147/66 H 157/75 H Pulse Oximetry 97 100 Oxygen Delivery Room Air Oxygen Flow Rate Intake/Output Intake/Output: Intake & Output 05/29/24 05/30/24 05/31/24 06/01/24 23:59 23:59 23:59 23:59 Intake Total 1900 1190 Output Total 600 8654 121 Balance -600 -15 -21 Meds/Results Medications: Active Medications Generic Name Dose Route Start Last Admin Trade Name Freq PRN Reason Stop Dose Admin Acetaminophen 650 mg 05/29/24 13:15 Acetaminophen 325 Mg Tablet PO Q4H PRN Mild Pain (1-3) or Fever Amlodipine Besylate 5 mg 05/29/24 16:50 06/01/24 08:29 Amlodipine Besylate 5 Mg Tablet PO 5 mg DAILY HAJA Administration Enoxaparin Sodium 40 mg 05/30/24 09:00 06/01/24 08:29 Enoxaparin 40 Mg/0.4 Ml Syringe SUB-Q 40 mg DAILY HAJA Administration Hydralazine HCl 10 mg 05/29/24 13:15 05/30/24 20:47 Hydralazine Hcl 20 Mg/Ml Vial IV PUSH 10 mg Q8H PRN Administration Blood Pressure - High Ceftriaxone Sodium 2 gm in 100 mls @ 200 mls/hr 05/30/24 13:00 05/31/24 12:20 Rocephin 2 Gm/Ns 100 Ml IVPB Infused Q24H HAJA Infusion Vancomycin HCl 1,250 mg in 250 mls @ 166.667 mls/hr 06/02/24 02:00 Vancomycin 1,250 Mg/Ns 250 Ml IVPB Q36H HAJA Morphine Sulfate 2 mg 05/29/24 13:15 05/30/24 06:14 Morphine Sulfate (*Crx) 2 Mg/Ml Inj IV PUSH 2 mg Q4H PRN Administration Pain Rated 7-10 Ondansetron H
[2024-06-01] MEDS: cefTRIAXone 2 GM/NS 100 ML 2 GM/100 ML BAG IVPB (12:04)
--- NOTE | 2024-06-01 13:23 | WPDANESPN ---
Anes - Prog Note Post-Op Date/Time: 06/01/24 13:23 Cardiovascular status: normal Respiratory status: normal Airway patency: baseline Mental status: baseline Post-Op hydration status: normal Vital Signs: Last Vital Signs Temp 36.5 C 06/01/24 05:38 Pulse 71 06/01/24 05:38 Resp 18 06/01/24 05:38 BP 157/75 H 06/01/24 05:38 Pulse Ox 100 06/01/24 05:38 O2 Del Method Room Air 05/31/24 20:00 O2 Flow Rate 05/31/24 12:47 Pain Score (VAS): 10/31 I/O: Intake & Output 05/31/24 06/01/24 06/01/24 23:59 07:59 15:59 Intake Total 790 118 Output Total 661 Balance 129 118 Laboratory Tests 05/30/24 08:16 06/01/24 06:23 06/01/24 06:23 Creatinine 1.60 H Estim Creat Clear Calc 37 Estimated GFR 42 L Post-procedural complaints: none Patient Feedback: Patient satisfied with anesthetic care.
[2024-06-01 14:00] VITALS: BP 154/78; PULSE 82; RESP 20; TEMP 36.3; O2SAT 100
--- NOTE | 2024-06-01 15:50 | PM.DS ---
DS: Admitting Diagnosis Discharge Date 06/01/24 Admitting Diagnosis Flank pain DS: Discharge Diagnosis Discharge Diagnosis (1) Right ureteral stone: Code(s): N20.1 - Calculus of ureter Status: Acute (2) Positive blood culture: Code(s): R78.81 - Bacteremia Status: Acute DS: Summary Hospital Course Reason for hospitalization: 73yo male here for right flank pain. Please see H&P for details. Hospital Course: Patient presents with right flank pain. Vital signs were stable. His blood pressure was elevated on admission. EKG showed sinus rhythm with first-degree block, borderline R-wave progression and LVH. Will also borderline T-wave changes noted. CBC was normal, PT and INR were normal. CMP were normal with exception of a creatinine 1.4, glucose 131. Lipase and TSH are normal. Troponin was negative. Urinalysis showed trace protein 2+ blood and 11-20 red cells. Urine drug screen was negative. Influenza, RSV and COVID nasal swab PCR were negative. CT of the abdomen and pelvis showed a 12 mm right UVJ stone with moderate right hydroureteronephrosis and extensive right perinephric stranding. He had small nonobstructing left renal stones noted. Urology was consulted and patient underwent cystoscopy, right retrograde, right ureteroscopy with holmium laser, stone extraction and right ureteral stent placement 4.8 [place] contour on 05/31/24. Patient toelrated the procedure well. Pain has subsided. He is eating well. His UCx was negative. One BCx grew Staph Epi felt to be contaminant given normal WBC, no fevers and not a uropathic organism. BP improved but remained elevated during his hospital course. Norvasc was started. Creatinine did climb to 1.6 felt related to the obstructive stone. He also noted to have a murmur. He was advised to followup with a primary care provider after discharge. He overall did well and was able to be discharged on 06/01/24. Status at Discharge Cognitive/behavioral status at discharge: stable Time Spent with Patient Time attestation: Total time spent providing and/or coordinating discharge services: 35 minutes Time spent: Greater than 30 minutes Exam Narrative: AF 97.7 157/75 71 18 100% ra Gen - NARD Chest - CTA bilaterally, nml RR CV - RRR S1/S2 with 2/6 systolic murmur loudest Rt USB. Abd - Soft, NT/ND, Positive BS Back - no back pain. Ext - No pedal edema Psych - Nml mood and affect Skin - Warm and dry DS: Data Data Completed and Pending Completed studies during hospitalization: Pending at discharge 05/31/24 12:25 Surgical [PTH] Routine Labs on day of discharge: Labs from last 24 hours 06/01/24 06:23 Creatinine 1.60 H Estim Creat Clear Calc 37 Estimated GFR 42 L Discharge Plan Discharge Attending physician on discharge: Storm Dixon Consulting providers: Kashif Hendricks Discharging Clinician: Storm Dixon Anticipated Discharge Date/Time: 06/01/24 16:01 Patient Disposition: Home, Self-Care Activity: as tolerated Diet: heart healthy Discharge Instructions: Check blood pressure 1 to 2 times a day. Record and bring into your doctor for review. Call your doctor if your blood pressure is greater than 180/110. Take precautions to avoid falls. Rise slowly from a lying or sitting position. Pause before standing or walking. Contact your doctor or call 911 and come to the Emergency Room if you have increasing shortnes of breath, lightheadedness with standing or other worrisome symptoms. Avoid NSAIDs (ibuprofen, naproxen, Aleve). Tylenol is safe to take. Follow-up with your primary care provider in 1-2 weeks. Please call for appointment. Follow-up with Urology as an outpatient in 1 week for stent removal. Please call for an appointment. Thank you for using [facility] for your health care needs. Patient Instructions: Antibiotic Form Stand Alone Forms: General Discharge Info
--- NOTE | 2024-06-01 16:53 | PC.NURSE ---
Care coordination reached out to patient to arrange a ride post discharge.
--- NOTE | 2024-06-01 16:58 | PC.NURSE ---
Patient unclear about discharge plans, reviewed discharge plans with Charge nurse and physician. Patient stated he was unclear about ride home, care coordination reached out to patient to coordinate ride home. Patient left unit with discharge paperwork.
== END 2024-06-01 16:46 | disposition home or self-care (01) | DRG 690 ==
PROVIDERS: Urology; Admitting Provider Internal Medicine; Visit Provider Internal Medicine
PROC: 0T9680Z Drainage of Right Ureter with Drainage Device, Via Natural or Artificial Opening Endoscopic (ICD-10-PCS; CPT 52352; principal; 2024-05-31 12:15)
DX: N13.6 Pyonephrosis (principal); E66.9 Obesity, unspecified; Z68.31 Body mass index [BMI] 31.0-31.9, adult; I10 Essential (primary) hypertension; R01.1 Cardiac murmur, unspecified
CPT/HCPCS: 36415; 74420; 80053; 82365; 82565; 83735; 85025; 87086; 88300; A9270; C1769; C2617; G0378; G0379; J0360; J0696; J1100; J1650; J2270; J2405; J2704; J3010; J3370; J7030; J7120; Q9966